=== PATIENT | male | born 1955 | race Caucasian/White ===

== ENCOUNTER 2017-01-05 09:51 | Emergency (ER) | payer MEDICARE, OTHER ==
[~2017-01-05 09:51] MED LIST: CHANTIX1 PO; DIL4TAB PO; LEXAPRO20 PO; NEXIUM20 M1 PO; VALIUM10 MG PO; ZOCOR40 PO
== END 2017-01-05 11:24 | disposition home or self-care (01) ==
LOC: ER 09:51
DX: F11.20 Opioid dependence, uncomplicated (principal); G89.29 Other chronic pain; F17.200 Nicotine dependence, unspecified, uncomplicated; E78.5 Hyperlipidemia, unspecified; I10 Essential (primary) hypertension; K21.9 Gastro-esophageal reflux disease without esophagitis; F31.9 Bipolar disorder, unspecified; F41.9 Anxiety disorder, unspecified; Z79.899 Other long term (current) drug therapy
CPT/HCPCS: 99283; A9270-GY